=== PATIENT | male | born 1960 | race Caucasian/White ===

== ENCOUNTER 2017-10-14 16:43 | Emergency (ER) | payer MEDICARE, OTHER ==
[~2017-10-14] VITALS: Ht 172.7 cm; Wt 68.0 kg
[2017-10-14 16:58] VITALS: BP 141/91
== END 2017-10-14 18:18 | disposition left against medical advice (07) ==
LOC: ER 16:43
DX: R10.9 Unspecified abdominal pain (principal); N50.811 Right testicular pain; Z53.21 Procedure and treatment not carried out due to patient leaving prior to being seen by health care provider